=== PATIENT | female | born 1955 | race Caucasian/White ===

== ENCOUNTER 2023-06-06 08:31 | Emergency (ER) | payer MEDICARE, SELFPAY ==
[2023-06-06 08:32] VITALS: BP 127/73; PULSE 88; RESP 16; TEMP 36.4; O2SAT 97; BMI 29.1
--- NOTE | 2023-06-06 08:53 | ED.VIS.GI ---
HPI HPI - GI History of Present Illness Chief Complaint: GI Bleed Informant: patient Abdominal Pain/Flank Pain Onset: Yesterday Context: Gradual Onset Timing: Intermittent Quality: Cramping Location: - (Lower abdomen, preceding diarrhea mostly and then improves) Current Severity: Mild Maximum Severity: Mild Nausea/Vomiting/Emesis GI Symptom: Positive for Nausea and Vomiting Onset: Yesterday Quality: Positive for Nonbilious; Negative for Blood streaks, Coffee ground or Hematemesis Diarrhea/Melena/Hematochezia GI Symptom: Positive for Diarrhea and Hematochezia; Negative for Melena Onset: Hours (12 or less) Severity: Severe Associated Symptoms Associated Symptoms: Negative for Dysuria, Frequency, Hematuria or Urgency Narrative Narrative: 67-year-old female states she started having some lower abdominal cramping last night followed by diarrhea watery light brown nonbloody no melena for 10 bouts or so, then the last 3 bouts that she has had overnight have been all blood along with some clots. Never had this before. No fevers or chills. She has had some vomiting but it is nonbloody and without coffee-ground emesis. Denies any recent courses of antibiotics, she did have 1 dose of an antibiotic about a month ago prior to having some dental work because she has total joints. No history of C. difficile. No travel out of the area. Denies any known contacts with similar symptoms, denies any suspicious food intake that she can think of, no undercooked meats, fish, etc. Had a screening colonoscopy in the past, had some polyps but no diverticulosis that she has ever been told. Only prior abdominal surgery was a tubal ligation remotely. Takes baby aspirin daily and lisinopril and is otherwise healthy. [facility] Medical History (Updated 06/06/23 @ 11:[address] Manny Thao MD) Hypertension Medical History no medical history Home Medications ciprofloxacin HCl 500 mg tablet 500 mg PO BID #6 TABLETS 06/06/23 [Rx Last Taken Unknown] ondansetron 4 mg disintegrating tablet 8 mg (2 x 4 mg) PO Q8H PRN PRN Nausea #20 tabs 06/06/23 [Rx Last Taken Unknown] Allergy/AdvReac Type Severity Reaction Status Date / Time codeine Allergy Unknown Verified 06/06/23 08:32 diclofenac [From Voltaren] Allergy Unknown Verified 06/06/23 08:32 erythromycin base Allergy Unknown Verified 06/06/23 08:32 oxybutynin [From Ditropan] Allergy Unknown Verified 06/06/23 08:32 Penicillins [PCN] Allergy Unknown Verified 06/06/23 08:32 pravastatin [From Pravachol] Allergy Unknown Verified 06/06/23 08:32 rofecoxib [From Vioxx] Allergy Unknown Verified 06/06/23 08:32 simvastatin [From Zocor] Allergy Unknown Verified 06/06/23 08:32 Surgical History (Updated 06/06/23 @ 08:[address] Manny Thao MD) History of total hip arthroplasty History of tubal ligation Hx of total knee arthroplasty Social History Smoking Status: Unknown if ever smoked ROS ROS ED Constitutional Constitutional ED: Reports malaise; Denies chills or fever(s) Eyes Eyes: Denies change in vision or diplopia ENT ENT ED: Denies rhinorrhea or sore throat Cardiovascular Cardiovascular: Denies chest pain, lightheadedness, palpitations or syncope Respiratory/Chest Respiratory/Chest: Denies cough or dyspnea Gastrointestinal Gastrointestinal: Reports abdominal pain, diarrhea, hematochezia, nausea and vomiting; Denies hematemesis or melena Genitourinary Genitourinary ED: Denies dysuria or hematuria Musculoskeletal Musculoskeletal: Denies back pain or neck pain Integumentary Denies abscess or rash Neurologic Neurologic: Denies headache(s), paresthesias or weakness Psychiatric Psychiatric: Denies anxiety or suicidal thoughts EXAM Physical Exam Const Vital Signs: 06/06/23 08:32 Temperature 97.5 F L Temperature Source Temporal Pulse Rate 88 Respiratory Rate 16 Blood Pressure 127/73 H Blood Pressure Mean 91 Pulse Ox 97 Oxygen Delivery Method Room Air Positive well nourished and well developed General Appearance ED: well developed and NAD HEENT Reports moist mucous membranes normocephalic and atraumatic Eyes PERRL and EOMs intact bilaterally Neck full ROM and supple Resp normal respiratory effort and clear to auscultation bilaterally Cardio regular rate, regular rhythm and no murmurs Rate: Negative for tachycardic GI non-tender and non-distended Auscultation: hyperactive bowel sounds Palpation: soft Back/Spine no CVA tenderness General Back: other FROM Extremity normal to inspection General Extremety ED: Negative for edema, pulses abnormal or tenderness General Extremity: Negative for edema or pulses abnormal Neuro oriented x3, CN's II-XII intact bilaterally and no sensory deficits noted Sensorium / Orientation: awake and alert Motor Exam: strength 5/5 throughout Skin no rashes or lesions noted and no wounds MDM MDM MDM Narrative Medical decision making narrative: Labs show a mild nonspecific leukocytosis, a normal lactate arguing against ischemic colitis, normal liver enzymes, and no anemia. Work-up argues against acute upper GI bleeding, as does her symptoms. I think this is all colonic. She had a colonoscopy but does not know if she was diagnosed with diverticulosis or not, she states she was not told if she did have it. To be honest, she and her are on high alert to that because her had a diverticular bleed that was significant and he needed a specialist. We observed her for a while here in the emergency department after giving her fluids, Zofran, dicyclomine, she was still having cramping but otherwise feeling better and able to ambulate without orthostatic symptoms, to and from the bathroom without any difficulty. She did go once and had a small amount of blood come out, we sent it to the lab, they were able to do a fecal white blood cell smear which actually returned positive, but they did not have enough to perform PCR/bacterial enteric panel. She definitely is bleeding less than she was before she got to the ER. She is trying to go again to provide a specimen for us to send, but she does not want to wait for it even if she does have enough to send for the test to be performed. She is hemodynamically stable, her blood counts are normal, I offered admission however we do not have GI available at this hospital this weekend, so if she wants to stay there is a chance she may have to be transferred depending on who is willing or not willing to scope her if she should require it. She declines this and prefers to go home. She understands that she can always come back if things get worse. I think it would be reasonable to put her on a 3-day course of Cipro. We did discuss the pros and cons of that, it is not without risk, but if she does have a bacterial source of her diarrhea it is possible that this would help or cure it. They also understand that not all bacterial causes of diarrhea require antibiotics at this time for an immunocompetent stable healthy 67-year-old. They are okay trying the course and following up with her doctor or return if worse. All of this discussed with the patient and her simultaneously. We considered advanced imaging such as CT but I do not think it is indicated or will be helpful at this time. Lab Data Attestation: I reviewed the patient's lab results. Labs: Laboratory Results - last 24 hr 06/06/23 06/06/23 09:03 09:15 WBC 11.1 H RBC 4.94 Hgb 14.6 Hct 44.4 MCV 89.9 MCH 29.6 MCHC 32.9 RDW Std Deviation 43.3 RDW Coeff of Sacha 13.2 Plt Count 189 MPV 9.1 Immature Gran % (Auto) 0.300 Neut % (Auto) 78.9 H Lymph % (Auto) 12.5 L [place] % (Auto) 7.5 Eos % (Auto) 0.6 Baso % (Auto) 0.2 Absolute Neuts (auto) 8.8 H Absolute Lymphs (auto) 1.39 Nucleated RBC % 0 Sodium 138 Potassium 4.2 Chloride 106 Carbon Dioxide 28.0 Anion Gap 4 L BUN 20 H Creatinine 0.90 Estim Creat Clear Calc 53.09 Est GFR (MDRD) Af Amer 80 Est GFR (MDRD) Non-Af 66 BUN/Creatinine Ratio 22.2 H Glucose 105 Lactic Acid 1.2 Calcium 8.9 Total Bilirubin 0.60 AST 17 ALT 26 Alkaline Phosphatase 97 Total Protein 6.8 Albumin 3.4 Globulin 3.4 Albumin/Globulin Ratio 1.0 Discharge Plan Triage Chief Complaint: GI Bleed ED Provider: Manny Thao Dx/Rx/DC Orders Clinical Impression: Gastroenteritis, Rectal bleeding Instructions: Understanding Rectal Bleeding, ED Diarrhea, Bacterial (Adult) Prescriptions: New ciprofloxacin HCl [ciprofloxacin HCl] 500 mg tablet 500 mg PO BID Qty: 6 0RF ondansetron [ondansetron] 4 mg tablet,disintegrating 8 mg PO Q8H PRN PRN (Reason: Nausea) Qty: 20 0RF Primary Care Provider: Baldev Rajput Referrals: Baldev Rajput MD [Primary Care Provider] - 3-5 Days if not improving Disposition Disposition: Home, Self Care
[2023-06-06] MEDS: Ondansetron 4 MG/2 ML Vial IV (09:15)
[2023-06-06] MEDS: 0.9% Normal Saline 1,000 ML 1000 ML IV (09:16)
[2023-06-06] MEDS: Dicyclomine 10 MG Capsule 20 MG PO (09:16)
[2023-06-06 09:27] LABS: Absolute Lymphocyte Count 1.39 X10^3/uL (0.83-4.51); Absolute Neutrophil Count 8.8 X10^3/uL (2.0-7.7); Basophil# 0.02 X10^3/uL; Basophil% 0.2 % (0-1); Eosinophil# 0.07 X10^3/uL; Eosinophils% 0.6 % (0-5); Hematocrit 44.4 % (37-47); Hemoglobin 14.6 g/dL (12.0-15.0); Lymphocyte # 1.39 X10^3/ul (0.83-4.51); Lymphocyte % 12.5 % (19-41); Mean Corp Hgb Conc 32.9 g/dL (32-36); Mean Corpuscular Hgb 29.6 pg (27.0-32.0); Mean Corpuscular Volume 89.9 fL (81-99); Mean Platelet Vol. 9.1 fl (6.2-12.0); Monocyte# 0.84 X10^3/uL; Monocyte% 7.5 % (0-10); NRBC Flagged by Analyzer 0 % (0-5); Neutrophil # 8.79 X10^3/uL (2.7-7.7); Neutrophil % 78.9 % (47-70); Platelet Count 189 K/mm3 (150-450); RBC Distribution Width CV 13.2 % (11.6-14.6); RBC Distribution Width SD 43.3 fl (35.1-43.9); Red Blood Count 4.94 M/mm3 (4.2-5.4); White Blood Count 11.1 K/mm3 (4.4-11.0)
[2023-06-06 09:45] LABS: AST(SGOT) 17 U/L (15-37); Alanine Aminotransfer ALT/SGPT 26 U/L (13-56); Albumin, Serum 3.4 g/dL (3.2-5.0); Alkaline Phosphatase 97 U/L (45-117); Anion Gap 4 (5-15); BUN 20 mg/dL (7-18); BUN/Creat Ratio 22.2 RATIO (10-20); Calcium,Total 8.9 mg/dL (8.5-10.1); Chloride 106 mmol/L (98-107); EST Glomerular Filtration Rate 66 mL/min (>60); Est Glom Filt Rate - Afr Amer 80 mL/min (>60); Estimated Creatinine Clearance 53.09 ml/min; Globulin 3.4 g/dL (2.2-4.2); Glucose 105 mg/dL (74-106); Potassium 4.2 mmol/L (3.5-5.1); Protein, Total 6.8 g/dL (6.4-8.2); Sodium Level 138 mmol/L (136-145)
[2023-06-06 09:47] LABS: Lactic Acid 1.2 mmol/L (0.4-1.9)
[2023-06-06 12:16] VITALS: BP 118/69; PULSE 72; RESP 16; O2SAT 98
== END 2023-06-06 12:17 | disposition home or self-care (01) ==
PROVIDERS: Emergency Provider Emergency Medicine; PCP Family Medicine; Visit Provider Emergency Medicine
DX: K52.9 Noninfective gastroenteritis and colitis, unspecified (principal); I10 Essential (primary) hypertension; K62.5 Hemorrhage of anus and rectum; Z79.82 Long term (current) use of aspirin; R19.7 Diarrhea, unspecified
CPT/HCPCS: 80053; 83605; 83630; 85025; 87506; 96361; 96374; 99284; J7030; A4216; J2405